=== PATIENT | female | born 1960 | race Caucasian/White ===

== ENCOUNTER 2018-04-17 19:23 | Inpatient (IN) | payer OTHER ==
[2018-04-17] MEDS ORDERED: ONDANSETRON 4 MG INJ IV (20:30)
[2018-04-17] MEDS ORDERED: DOCUSATE SODIUM 100 MG CAP PO (20:30)
[2018-04-17] MEDS ORDERED: NACL 0.9% 3 ML SYG IV (20:30)
[2018-04-17] MEDS ORDERED: BISACODYL (EC) 5 MG TAB PO (20:30)
[2018-04-17] MEDS ORDERED: HYDROCODONE/APAP (5/325) TAB PO (20:30)
[2018-04-17] MEDS ORDERED: GLUCOSE GEL 15 GRAM TUBE BUCCAL (21:00)
[2018-04-17] MEDS ORDERED: DEXTROSE 50% 50 ML SYRINGE IV ×2 (21:00)
[2018-04-17] MEDS ORDERED: GLUCAGON 1 MG INJ IM (21:00)
[2018-04-17] MEDS ORDERED: GLUCOSE GEL 15 GRAM TUBE PO ×2 (21:00)
[2018-04-17 21:15] LABS: ADD MAN DIFF? NO
[2018-04-17 21:18] LABS: BASOPHILS % 0.3 % (0.0-2.0); EOSINOPHILS % 0.3 % (0.0-7.0); HEMATOCRIT 29.7 % (37.0-47.0); HEMOGLOBIN 8.6 g/dl (12.0-16.0); LYMPHOCYTES # 2.1 10^3/ul (0.8-2.9); LYMPHOCYTES % 23.3 % (15.0-51.0); MEAN CORPUSCULAR HEMOGLOBIN 23.2 pg (29.0-33.0); MEAN CORPUSCULAR VOLUME 80.3 fl (82.0-101.0); MEAN PLATELET VOLUME 8.9 fl (7.4-10.4); MONOCYTE # 0.6 10^3/ul (0.3-0.9); MONOCYTES % 6.4 % (0.0-11.0); NEUTROPHIL # 6.3 10^3/ul (1.6-7.5); NEUTROPHILS % 68.8 % (39.0-77.0); PLATELET COUNT 391 10^3/UL (140-415); RED CELL DISTRIBUTION WIDTH 20.1 % (11.5-14.5)
[2018-04-17 21:18] LABS: WHITE BLOOD COUNT 9.2 10^3/ul (4.8-10.8)
[2018-04-17 21:27] LABS: HEMOGLOBIN A1C 8.1 % (0-5.9)
[2018-04-17 21:51] LABS: ALANINE AMINOTRANSFERASE 15 IU/L (13-69); ALBUMIN 3.5 g/dl (3.3-4.9); ALBUMIN/GLOBULIN RATIO 1.12; ALKALINE PHOSPHATASE 169 IU/L (42-121); ANION GAP 14 (5-13); ASPARTATE AMINO TRANSFERASE 25 IU/L (15-46); BILIRUBIN,INDIRECT 0.3 mg/dl (0-1.1); BILIRUBIN,TOTAL 0.3 mg/dl (0.2-1.3); BLOOD UREA NITROGEN 15 mg/dl (7-20); CARBON DIOXIDE 32 mmol/L (21-31); CHLORIDE 93 mmol/L (97-110); CHOL/HDL RATIO 3.3 RATIO; CHOLESTEROL 124 mg/dl (100-200); CREATININE 0.53 mg/dl (0.44-1.00); Estimated GFR > 60 mL/min (>60); GLUCOSE 173 mg/dl (70-220); HDL CHOLESTEROL 37 mg/dl (37-92); LDL CHOLESTEROL,CALCULATED 66 mg/dl; MAGNESIUM 1.5 mg/dl (1.7-2.5); SODIUM 139 mmol/L (135-144); TOTAL PROTEIN 6.6 g/dl (6.1-8.1); TRIGLYCERIDES 105 mg/dl (0-149)
[2018-04-17] MEDS: GABAPENTIN 100 MG CAP PO (22:08)
[2018-04-17] MEDS: ATORVASTATIN 10 MG TAB PO (22:08)
[2018-04-17] MEDS: DOCUSATE SODIUM 100 MG CAP PO (22:08)
[2018-04-17] MEDS: INSULIN ASPART [NOVOLOG] 3 ML PEN SC (23:06)
[2018-04-18] MEDS: INSULIN ASPART [NOVOLOG] 3 ML PEN SC ×7 (01:43→17:49)
[2018-04-18] MEDS: SOD CHLORIDE 0.9% 1,000 ML IV (01:58)
[2018-04-18] MEDS ORDERED: ACCU-CHEK XX (02:00)
[2018-04-18 06:28] LABS: ADD MAN DIFF? NO
[2018-04-18 06:35] LABS: ABNORMAL IP MESSAGE 1; BASOPHILS % 0.3 % (0.0-2.0); EOSINOPHILS % 0.3 % (0.0-7.0); HEMATOCRIT 27.7 % (37.0-47.0); LYMPHOCYTES # 1.5 10^3/ul (0.8-2.9); LYMPHOCYTES % 21.5 % (15.0-51.0); MEAN CORPUSCULAR HEMOGLOBIN 23.2 pg (29.0-33.0); MEAN CORPUSCULAR HGB CONC 28.9 g/dl (32.0-37.0); MEAN CORPUSCULAR VOLUME 80.3 fl (82.0-101.0); MEAN PLATELET VOLUME 8.8 fl (7.4-10.4); MONOCYTE # 0.6 10^3/ul (0.3-0.9); MONOCYTES % 7.9 % (0.0-11.0); NEUTROPHIL # 4.9 10^3/ul (1.6-7.5); PLATELET COUNT 321 10^3/UL (140-415); RED BLOOD COUNT 3.45 10^6/ul (4.20-5.40)
[2018-04-18 06:35] LABS: WHITE BLOOD COUNT 7.1 10^3/ul (4.8-10.8)
[2018-04-18 06:38] LABS: POSITIVE DIFF @See below
[2018-04-18 06:54] LABS: INR 1.02; PROTIME 13.5 Sec (11.9-14.9); PT RATIO 1.1
[2018-04-18 06:55] LABS: PARTIAL THROMBOPLASTIN TIME 30.6 Sec (23.0-35.0)
[2018-04-18 07:01] LABS: ALANINE AMINOTRANSFERASE 13 IU/L (13-69); ALBUMIN 3.4 g/dl (3.3-4.9); ALBUMIN/GLOBULIN RATIO 1.03; ALKALINE PHOSPHATASE 175 IU/L (42-121); ANION GAP 11 (5-13); ASPARTATE AMINO TRANSFERASE 23 IU/L (15-46); BILIRUBIN,INDIRECT 0.5 mg/dl (0-1.1); BILIRUBIN,TOTAL 0.5 mg/dl (0.2-1.3); BLOOD UREA NITROGEN 14 mg/dl (7-20); CALCIUM 8.5 mg/dl (8.4-10.2); CARBON DIOXIDE 33 mmol/L (21-31); CHLORIDE 93 mmol/L (97-110); CREATININE 0.51 mg/dl (0.44-1.00); Estimated GFR > 60 mL/min (>60); GLUCOSE 273 mg/dl (70-220); SODIUM 137 mmol/L (135-144); TOTAL PROTEIN 6.7 g/dl (6.1-8.1)
[2018-04-18] MEDS: DOCUSATE SODIUM 100 MG CAP PO ×2 (09:00→21:00)
[2018-04-18] MEDS: ATENOLOL 50 MG TAB PO (09:19)
[2018-04-18] MEDS: INSULIN GLARGINE [LANTus] (100 UNITS/ML) SYG SC (09:36)
[2018-04-18] MEDS: ENALAPRIL 10 MG TAB PO (12:04)
[2018-04-18] MEDS: FUROSEMIDE 40 MG INJ IV ×2 (12:04→17:50)
[2018-04-18] MEDS ORDERED: INSULIN ASPART [NOVOLOG] 3 ML PEN SC (17:30)
[2018-04-18] MEDS: Insulin NOVOLOG SS MILD Algorithm (SS with meals and bedtime) SC ×2 (17:49→21:52)
[2018-04-18] MEDS: GABAPENTIN 100 MG CAP PO (21:00)
[2018-04-18] MEDS: ATORVASTATIN 10 MG TAB PO (21:00)
[2018-04-19] MEDS: ACETAMINOPHEN 325 MG TAB PO (00:52)
[2018-04-19] MEDS: ACCUCHECK AT 2AM (Patients on SS coverage) XX (02:14)
[2018-04-19 02:34] LABS: ADD MAN DIFF? NO
[2018-04-19 02:35] LABS: ABNORMAL IP MESSAGE 1; BASOPHILS % 0.2 % (0.0-2.0); EOSINOPHILS % 0.1 % (0.0-7.0); HEMATOCRIT 26.3 % (37.0-47.0); HEMOGLOBIN 7.6 g/dl (12.0-16.0); LYMPHOCYTES # 1.8 10^3/ul (0.8-2.9); LYMPHOCYTES % 21.2 % (15.0-51.0); MEAN CORPUSCULAR HEMOGLOBIN 23.2 pg (29.0-33.0); MEAN CORPUSCULAR HGB CONC 28.9 g/dl (32.0-37.0); MEAN CORPUSCULAR VOLUME 80.2 fl (82.0-101.0); MEAN PLATELET VOLUME 8.6 fl (7.4-10.4); MONOCYTE # 0.6 10^3/ul (0.3-0.9); NEUTROPHIL # 6.2 10^3/ul (1.6-7.5); NEUTROPHILS % 70.8 % (39.0-77.0); PLATELET COUNT 325 10^3/UL (140-415); RED BLOOD COUNT 3.28 10^6/ul (4.20-5.40); RED CELL DISTRIBUTION WIDTH 19.7 % (11.5-14.5)
[2018-04-19 02:35] LABS: WHITE BLOOD COUNT 8.7 10^3/ul (4.8-10.8)
[2018-04-19 02:42] LABS: POSITIVE DIFF @See below
[2018-04-19 02:53] LABS: ALANINE AMINOTRANSFERASE 7 IU/L (13-69); ALBUMIN 3.3 g/dl (3.3-4.9); ALBUMIN/GLOBULIN RATIO 0.94; ALKALINE PHOSPHATASE 174 IU/L (42-121); ANION GAP 8 (5-13); ASPARTATE AMINO TRANSFERASE 21 IU/L (15-46); BILIRUBIN,INDIRECT 0.3 mg/dl (0-1.1); BILIRUBIN,TOTAL 0.3 mg/dl (0.2-1.3); BLOOD UREA NITROGEN 21 mg/dl (7-20); CALCIUM 8.1 mg/dl (8.4-10.2); CARBON DIOXIDE 34 mmol/L (21-31); CHLORIDE 93 mmol/L (97-110); CREATININE 0.72 mg/dl (0.44-1.00); Estimated GFR > 60 mL/min (>60); GLUCOSE 284 mg/dl (70-220); POTASSIUM 3.8 mmol/L (3.5-5.1); SODIUM 135 mmol/L (135-144); TOTAL PROTEIN 6.8 g/dl (6.1-8.1)
[2018-04-19] MEDS: FUROSEMIDE 40 MG INJ IV (06:00)
[2018-04-19] MEDS: INSULIN GLARGINE [LANTus] (100 UNITS/ML) SYG SC (08:23)
[2018-04-19] MEDS: Insulin NOVOLOG SS MILD Algorithm (SS with meals and bedtime) SC ×4 (08:24→21:12)
[2018-04-19] MEDS: INSULIN ASPART [NOVOLOG] 3 ML PEN SC ×3 (08:24→17:54)
[2018-04-19] MEDS: ENALAPRIL 10 MG TAB PO ×2 (09:00→12:57)
[2018-04-19] MEDS: ATENOLOL 50 MG TAB PO ×2 (09:00→12:57)
[2018-04-19] MEDS: DOCUSATE SODIUM 100 MG CAP PO ×2 (10:12→21:04)
[2018-04-19 11:18] LABS: ADD UMIC YES; UR ASCORBIC ACID NEGATIVE (NEGATIVE); UR BACTERIA FEW /HPF (NONE SEEN); UR BILIRUBIN (Dip) NEGATIVE (NEGATIVE); UR BLOOD (Dip) NEGATIVE (NEGATIVE); UR CLARITY CLOUDY (CLEAR); UR COLOR YELLOW (YELLOW); UR GLUCOSE (Dip) NEGATIVE (NEGATIVE); UR KETONES (Dip) TRACE mg/dL (NEGATIVE); UR LEUKOCYTE ESTERASE (Dip) 1+ Leu/ul (NEGATIVE); UR NITRITE (Dip) NEGATIVE (NEGATIVE); UR RBC 1 /HPF (0-5); UR SPECIFIC GRAVITY (Dip) 1.024 (1.003-1.030); UR SQUAMOUS EPITHELIAL CELL MODERATE /HPF (FEW); UR TOTAL PROTEIN (Dip) 1+ mg/dl (NEGATIVE); UR UROBILINOGEN (Dip) NEGATIVE (NEGATIVE); UR WBC 10 /HPF (0-5)
[2018-04-19] MEDS: ATORVASTATIN 10 MG TAB PO (21:03)
[2018-04-19] MEDS: GABAPENTIN 100 MG CAP PO (21:03)
[2018-04-20] MEDS: ACCUCHECK AT 2AM (Patients on SS coverage) XX (02:00)
[2018-04-20] MEDS: INSULIN ASPART [NOVOLOG] 3 ML PEN SC ×4 (02:53→17:36)
[2018-04-20 06:13] LABS: ADD MAN DIFF? NO
[2018-04-20 06:15] LABS: BASOPHILS % 0.4 % (0.0-2.0); EOSINOPHILS % 0.5 % (0.0-7.0); HEMATOCRIT 26.5 % (37.0-47.0); HEMOGLOBIN 7.7 g/dl (12.0-16.0); LYMPHOCYTES # 1.4 10^3/ul (0.8-2.9); LYMPHOCYTES % 17.5 % (15.0-51.0); MEAN CORPUSCULAR HEMOGLOBIN 23.3 pg (29.0-33.0); MEAN CORPUSCULAR HGB CONC 29.1 g/dl (32.0-37.0); MEAN CORPUSCULAR VOLUME 80.3 fl (82.0-101.0); MEAN PLATELET VOLUME 8.8 fl (7.4-10.4); MONOCYTE # 0.6 10^3/ul (0.3-0.9); NEUTROPHIL # 5.8 10^3/ul (1.6-7.5); NEUTROPHILS % 74.1 % (39.0-77.0); PLATELET COUNT 347 10^3/UL (140-415); RED CELL DISTRIBUTION WIDTH 19.4 % (11.5-14.5)
[2018-04-20 06:15] LABS: WHITE BLOOD COUNT 7.8 10^3/ul (4.8-10.8)
[2018-04-20 07:11] LABS: ALANINE AMINOTRANSFERASE 8 IU/L (13-69); ALBUMIN 3.4 g/dl (3.3-4.9); ALBUMIN/GLOBULIN RATIO 0.94; ALKALINE PHOSPHATASE 185 IU/L (42-121); ANION GAP 7 (5-13); ASPARTATE AMINO TRANSFERASE 26 IU/L (15-46); BILIRUBIN,INDIRECT 0.1 mg/dl (0-1.1); BILIRUBIN,TOTAL 0.1 mg/dl (0.2-1.3); BLOOD UREA NITROGEN 16 mg/dl (7-20); CALCIUM 8.7 mg/dl (8.4-10.2); CARBON DIOXIDE 34 mmol/L (21-31); CHLORIDE 94 mmol/L (97-110); CREATININE 0.58 mg/dl (0.44-1.00); Estimated GFR > 60 mL/min (>60); GLUCOSE 187 mg/dl (70-220); SODIUM 135 mmol/L (135-144)
[2018-04-20] MEDS: Insulin NOVOLOG SS MILD Algorithm (SS with meals and bedtime) SC ×4 (08:49→20:38)
[2018-04-20] MEDS: INSULIN GLARGINE [LANTus] (100 UNITS/ML) SYG SC (08:49)
[2018-04-20] MEDS: ATENOLOL 50 MG TAB PO (08:53)
[2018-04-20] MEDS: ENALAPRIL 10 MG TAB PO (08:53)
[2018-04-20] MEDS: DOCUSATE SODIUM 100 MG CAP PO ×2 (08:53→20:36)
[2018-04-20] MEDS: GABAPENTIN 100 MG CAP PO (20:36)
[2018-04-20] MEDS: ATORVASTATIN 10 MG TAB PO (20:36)
[2018-04-21] MEDS: SOD CHLORIDE 0.9% 250 ML IV* (02:00)
[2018-04-21] MEDS: ACCUCHECK AT 2AM (Patients on SS coverage) XX (02:11)
[2018-04-21 06:38] LABS: ADD MAN DIFF? NO
[2018-04-21 06:46] LABS: ABNORMAL IP MESSAGE 1; BASOPHILS % 0.4 % (0.0-2.0); EOSINOPHILS % 0.4 % (0.0-7.0); HEMOGLOBIN 7.2 g/dl (12.0-16.0); LYMPHOCYTES # 1.6 10^3/ul (0.8-2.9); MEAN CORPUSCULAR HGB CONC 28.8 g/dl (32.0-37.0); MEAN CORPUSCULAR VOLUME 79.9 fl (82.0-101.0); MEAN PLATELET VOLUME 8.8 fl (7.4-10.4); MONOCYTE # 0.6 10^3/ul (0.3-0.9); MONOCYTES % 7.6 % (0.0-11.0); NEUTROPHIL # 5.5 10^3/ul (1.6-7.5); PLATELET COUNT 371 10^3/UL (140-415); RED BLOOD COUNT 3.13 10^6/ul (4.20-5.40); RED CELL DISTRIBUTION WIDTH 19.3 % (11.5-14.5)
[2018-04-21 06:46] LABS: WHITE BLOOD COUNT 7.8 10^3/ul (4.8-10.8)
[2018-04-21 07:24] LABS: ALANINE AMINOTRANSFERASE 7 IU/L (13-69); ALBUMIN 3.3 g/dl (3.3-4.9); ALKALINE PHOSPHATASE 180 IU/L (42-121); ANION GAP 12 (5-13); ASPARTATE AMINO TRANSFERASE 23 IU/L (15-46); BILIRUBIN,INDIRECT 0.2 mg/dl (0-1.1); BILIRUBIN,TOTAL 0.2 mg/dl (0.2-1.3); BLOOD UREA NITROGEN 15 mg/dl (7-20); CALCIUM 8.5 mg/dl (8.4-10.2); CARBON DIOXIDE 35 mmol/L (21-31); CHLORIDE 94 mmol/L (97-110); CREATININE 0.57 mg/dl (0.44-1.00); Estimated GFR > 60 mL/min (>60); GLUCOSE 133 mg/dl (70-220); SODIUM 141 mmol/L (135-144); TOTAL PROTEIN 6.6 g/dl (6.1-8.1)
[2018-04-21 07:37] LABS: POSITIVE DIFF @See below
[2018-04-21] MEDS: INSULIN ASPART [NOVOLOG] 3 ML PEN SC ×7 (08:00→23:16)
[2018-04-21] MEDS: INSULIN GLARGINE [LANTus] (100 UNITS/ML) SYG SC (08:37)
[2018-04-21] MEDS: DOCUSATE SODIUM 100 MG CAP PO ×2 (08:53→20:25)
[2018-04-21] MEDS: ENALAPRIL 10 MG TAB PO (08:53)
[2018-04-21] MEDS: ATENOLOL 50 MG TAB PO (08:53)
[2018-04-21] MEDS ORDERED: OXYCODONE/ACETAMINOPHEN (5/325) TAB PO (10:00)
[2018-04-21] MEDS ORDERED: MEPERIDINE 25 MG INJ IV (10:00)
[2018-04-21] MEDS ORDERED: ONDANSETRON 4 MG INJ IV (10:00)
[2018-04-21] MEDS ORDERED: HYDROmorphONE 1 MG/5 ML IV SYRINGE IV ×3 (10:00)
[2018-04-21] MEDS ORDERED: FENTAnyl 50 MCG/ML VIAL IV ×3 (10:00)
[2018-04-21] MEDS ORDERED: LABETALOL HCL 20MG INJ IV (10:00)
[2018-04-21] MEDS ORDERED: EPHEDrine SULFATE 50 MG/5 ML SYG IV (10:00)
[2018-04-21] MEDS ORDERED: MIDAZOLAM 1 MG/ML 2 ML INJ (10:00)
[2018-04-21] MEDS ORDERED: DIPHENHYDRAMINE 50 MG INJ IV (10:00)
[2018-04-21] MEDS ORDERED: hydrALAzine 20 MG INJ IV (10:00)
[2018-04-21] MEDS ORDERED: FENTAnyl 50 MCG/ML VIAL (10:00)
[2018-04-21] MEDS ORDERED: DEXAMETHASONE 4 MG/ML 5 ML INJ (10:17)
[2018-04-21] MEDS ORDERED: ONDANSETRON 4 MG INJ (10:17)
[2018-04-21] MEDS ORDERED: CEFAZOLIN 1 GM INJ (10:17)
[2018-04-21] MEDS ORDERED: METOCLOPRAMIDE 10 MG INJ (10:17)
[2018-04-21] MEDS: LIDOCAINE 1% (MPF) 30 ML INJ (10:27)
[2018-04-21] MEDS: HEPARIN 1000 UNITS/ML 10 ML INJ (10:28)
[2018-04-21] MEDS: Insulin NOVOLOG SS MILD Algorithm (SS with meals and bedtime) SC (12:28)
[2018-04-21 18:56] LABS: GLUCOSE 590 mg/dl (70-220)
[2018-04-21] MEDS: traMADol 50 MG TAB PO (20:25)
[2018-04-21] MEDS: GABAPENTIN 100 MG CAP PO (20:25)
[2018-04-21] MEDS: ATORVASTATIN 10 MG TAB PO (20:25)
[2018-04-21 21:47] LABS: GLUCOSE 593 mg/dl (70-220)
[2018-04-21] MEDS: SOD CHLORIDE 0.9% 1,000 ML IV (23:12)
[2018-04-22] MEDS: ACCUCHECK AT 2AM (Patients on SS coverage) XX (02:37)
[2018-04-22 06:20] LABS: IMMEDIATE SPIN CROSSMATCH 1 2
[2018-04-22] MEDS: ATENOLOL 50 MG TAB PO (08:11)
[2018-04-22] MEDS: ENALAPRIL 10 MG TAB PO (08:11)
[2018-04-22] MEDS: INSULIN GLARGINE [LANTus] (100 UNITS/ML) SYG SC (08:16)
[2018-04-22] MEDS: INSULIN ASPART [NOVOLOG] 3 ML PEN SC ×7 (08:17→21:10)
[2018-04-22] MEDS: DOCUSATE SODIUM 100 MG CAP PO ×2 (08:18→21:04)
[2018-04-22 12:29] LABS: ADD MAN DIFF? NO
[2018-04-22 12:30] LABS: BASOPHILS % 0.2 % (0.0-2.0); HEMATOCRIT 33.3 % (37.0-47.0); LYMPHOCYTES # 0.9 10^3/ul (0.8-2.9); LYMPHOCYTES % 10.2 % (15.0-51.0); MEAN CORPUSCULAR HEMOGLOBIN 24.6 pg (29.0-33.0); MEAN CORPUSCULAR VOLUME 81.8 fl (82.0-101.0); MEAN PLATELET VOLUME 8.6 fl (7.4-10.4); MONOCYTE # 0.7 10^3/ul (0.3-0.9); MONOCYTES % 8.4 % (0.0-11.0); NEUTROPHIL # 6.7 10^3/ul (1.6-7.5); NEUTROPHILS % 80.6 % (39.0-77.0); PLATELET COUNT 419 10^3/UL (140-415); RED BLOOD COUNT 4.07 10^6/ul (4.20-5.40); RED CELL DISTRIBUTION WIDTH 17.5 % (11.5-14.5)
[2018-04-22 12:30] LABS: WHITE BLOOD COUNT 8.3 10^3/ul (4.8-10.8)
[2018-04-22] MEDS: traMADol 50 MG TAB PO (12:31)
[2018-04-22 12:51] LABS: ALANINE AMINOTRANSFERASE 10 IU/L (13-69); ALBUMIN 3.4 g/dl (3.3-4.9); ALBUMIN/GLOBULIN RATIO 0.97; ALKALINE PHOSPHATASE 176 IU/L (42-121); ANION GAP 9 (5-13); ASPARTATE AMINO TRANSFERASE 18 IU/L (15-46); BILIRUBIN,INDIRECT 0.3 mg/dl (0-1.1); BILIRUBIN,TOTAL 0.3 mg/dl (0.2-1.3); BLOOD UREA NITROGEN 22 mg/dl (7-20); CARBON DIOXIDE 33 mmol/L (21-31); CHLORIDE 96 mmol/L (97-110); CREATININE 0.52 mg/dl (0.44-1.00); Estimated GFR > 60 mL/min (>60); GLUCOSE 300 mg/dl (70-220); POTASSIUM 4.9 mmol/L (3.5-5.1); SODIUM 138 mmol/L (135-144); TOTAL PROTEIN 6.9 g/dl (6.1-8.1)
[2018-04-22] MEDS: metFORMIN 500 MG TAB PO ×2 (14:09→17:32)
[2018-04-22] MEDS: FERROUS SULFATE (EC) 325 MG TAB PO ×2 (14:09→21:04)
[2018-04-22] MEDS: ACCU-CHEK XX ×2 (17:22→21:00)
[2018-04-22] MEDS: HYDROCODONE/APAP (5/325) TAB PO (18:47)
[2018-04-22] MEDS: GABAPENTIN 100 MG CAP PO (21:04)
[2018-04-22] MEDS: ATORVASTATIN 10 MG TAB PO (21:04)
[2018-04-23] MEDS: ACCUCHECK AT 2AM (Patients on SS coverage) XX (02:00)
[2018-04-23] MEDS: HYDROCODONE/APAP (5/325) TAB PO ×2 (02:22→18:15)
[2018-04-23] MEDS: ACCU-CHEK XX ×3 (07:00→17:30)
[2018-04-23] MEDS: DOCUSATE SODIUM 100 MG CAP PO (07:56)
[2018-04-23] MEDS: FERROUS SULFATE (EC) 325 MG TAB PO (07:56)
[2018-04-23] MEDS: metFORMIN 500 MG TAB PO ×2 (07:56→17:44)
[2018-04-23] MEDS: ATENOLOL 50 MG TAB PO (08:00)
[2018-04-23] MEDS: INSULIN ASPART [NOVOLOG] 3 ML PEN SC ×6 (08:00→17:40)
[2018-04-23] MEDS: ENALAPRIL 10 MG TAB PO (08:00)
[2018-04-23] MEDS: INSULIN GLARGINE [LANTus] (100 UNITS/ML) SYG SC (08:04)
[2018-04-23] MEDS: HYDROCODONE/APAP (10/325) TAB PO (14:55)
[2018-04-23] MEDS: LEVOFLOXACIN 750MG/D5W (PMX) 150 ML IVPB (14:57)
== END 2018-04-23 19:00 | disposition home health service (06) | DRG 206 ==
LOC: 2NE 04-19 20:50 → TEL 19:23 → 2NE 04-18 17:00
PROC: 0W9B30Z Drainage of Left Pleural Cavity with Drainage Device, Percutaneous Approach (ICD-10-PCS; principal; 2018-04-21 09:30)
DX: J95.89 Other postprocedural complications and disorders of respiratory system, not elsewhere classified (principal); J94.8 Other specified pleural conditions; C78.00 Secondary malignant neoplasm of unspecified lung; C79.51 Secondary malignant neoplasm of bone; J91.0 Malignant pleural effusion; I10 Essential (primary) hypertension; E11.9 Type 2 diabetes mellitus without complications; E78.5 Hyperlipidemia, unspecified; C50.919 Malignant neoplasm of unspecified site of unspecified female breast; R60.9 Edema, unspecified; Z79.4 Long term (current) use of insulin
CPT/HCPCS: 36430; 71045; 71250; 75989; 76942; 80053; 80061; 81001; 82947; 82962; 83036; 83605; 83735; 84443; 85025; 85610; 85730; 86850; 86900; 86901; 86920; 87040; 87086; 93306; 93970